=== PATIENT | female | born 1980 | race Caucasian/White ===

== ENCOUNTER 2018-12-17 13:13 | Emergency (ER) | payer MEDICARE, MEDICAID, SELFPAY ==
[2018-12-17 13:15] VITALS: BP 139/86; PULSE 122; RESP 20; TEMP 36.4; O2SAT 96; BMI 39.6
--- NOTE | 2018-12-17 13:28 | DI.RAD.S_ITS ---
PROCEDURE: XR HIP W PEL IF DONE RT 2V INDICATIONS: pain from failing hip surgery TECHNIQUE: AP pelvis with lateral view(s) of the right hip(s). COMPARISON: Outside Film, CR, XR PELVIS WITH LATERAL HIP RIGHT, 09/08/2018, 22:41. Outside Film, CR, XR PELVIS WITH LATERAL HIP RIGHT, 09/12/2018, 22:22. [facility] Outside Film, CT, CT HIP RIGHT WITHOUT CONTRAST, 10/15/2018, 5:07. SNO Outside Film, CR, XR PELVIS WITH LATERAL HIP RIGHT, 09/24/2018, 15:30. SNO Outside Film, CR, XR PELVIS WITH LATERAL HIP RIGHT, 10/08/2018, 13:04. FINDINGS: Bones: There is fracture of the right femoral neck without displacement. There is internal surgical fixation as seen on the prior exams. The alignment is stable. No dislocations. Pelvic ring appears intact. No suspicious bony lesions. Soft tissues: The visualized bowel gas pattern is normal. No suspicious soft tissue calcifications. IMPRESSION: Non-displaced fracture of the right femoral neck with internal fixation. The fracture is most likely subacute or chronic although superimposed acute fracture cannot be excluded. If clinical symptoms persist or clinical suspicion for superimposed acute fracture is high, CT is suggested for further evaluation. Dictated by: Sushma Andersen M.D. on 12/17/2018 at 13:45 Approved by: Sushma Andersen M.D. on 12/17/2018 at 13:52
--- NOTE | 2018-12-17 13:33 | ED_ITS ---
HPI - Extremity Injury (Lower) <Sinai Batista PA-C - Last Filed: 12/17/18 17:20> General Chief Complaint: Extremity Injury, Lower Stated Complaint: Can't move, pain right hip fracture Time Seen by Provider: 12/17/18 13:30 Source: patient Mode of arrival: wheelchair Limitations: no limitations History of Present Illness HPI Narrative: This 38-year-old female had a ground level fall and fractured her right hip 2/. She required transfer to [facility] and fixation was done. She states that this has not healed, and she has been having follow-up x-rays, last 2 weeks ago where apparently there was some movement of the pins. Surgeon at [facility] told her if she has pain with trying to move it is likely that the pins need to come out. She has had worsening pain, states she does okay lying in bed, but hip has gradually become more painful with any movement. She has not been weight-bearing at all. She states that pain was even worse 2 days ago than it is today. She denies any new injury. She states that she has been referred to Dr. Davis for follow-up as she may need a hip replacement, however has not seen her yet. Apparently Dr. Davis has been reviewing her films. Related Data Home Medications Medication Instructions Recorded Confirmed acetaminophen-codeine 1 tab PO Q4H PRN 12/17/18 12/17/18 cyclobenzaprine 5 mg PO TID PRN 12/17/18 12/17/18 dextroamphetamine-amphetamine 20 mg PO TID 12/17/18 12/17/18 diazepam 10 mg PO QID 12/17/18 12/17/18 levothyroxine 88 mcg PO DAILY 12/17/18 12/17/18 naloxone [Narcan] 1 spray INTRANASAL PRN PRN 12/17/18 12/17/18 omeprazole 40 mg PO DAILY 12/17/18 12/17/18 oxycodone-acetaminophen 1 - 2 tab PO Q6H PRN 12/17/18 12/17/18 pregabalin [Lyrica] 150 mg PO TID 12/17/18 12/17/18 promethazine 25 - 50 mg PO Q8H PRN 12/17/18 12/17/18 quetiapine 200 - 400 mg PO BEDTIME 12/17/18 12/17/18 selegiline [Emsam] 1 patch TOPICAL DAILY 12/17/18 12/17/18 sumatriptan succinate 100 mg PO PRN PRN MDD 2 tabs 12/17/18 12/17/18 temazepam 30 mg PO BEDTIME 12/17/18 12/17/18 Allergies Allergy/AdvReac Type Severity Reaction Status Date / Time No Known Drug Allergies Allergy Verified 12/17/18 13:26 Review of Systems <Sinai Batista PA-C - Last Filed: 12/17/18 17:20> Review of Systems ROS Unobtainable: All systems reviewed & are unremarkable except as noted in HPI and below PFSH <Sinai Batista PA-C - Last Filed: 12/17/18 17:20> Medical History (Updated 12/17/18 @ 15:30 by Sinai Batista PA-C) Hypothyroidism (Chronic) Surgical History (Updated 12/17/18 @ 14:02 by Sinai Batista PA-C) Status post fracture of single hip (Resolved) Social History Smoking Status: Never smoker Social History Smoking Status: Never smoker Exam <Sinai Batista PA-C - Last Filed: 12/17/18 17:20> Narrative Exam Narrative: GENERAL APPEARANCE: Patient sitting comfortably, in no distress. LUNGS: Clear to auscultation bilaterally. HEART: Rate and rhythm regular without murmur, normal S1 and S2, no S3 or S4. MUSCULOSKELETAL: No point tenderness to palpation over the right hip, but tender with passive inversion more than eversion, tender with flexion. Range of motion is limited secondary to tenderness. No tenderness over the thigh, no tenderness over the right knee joint. EXTREMITIES: No edema or cyanosis, lower extremity sensation grossly intact Initial Vital Signs Initial Vital Signs: Vital Signs Temperature 97.5 F L 12/17/18 13:15 Pulse Rate 122 H 12/17/18 13:15 Respiratory Rate 20 12/17/18 13:15 Blood Pressure 139/86 12/17/18 13:15 Pulse Oximetry 96 12/17/18 13:15 <Shantel Aguilar DO - Last Filed: 12/18/18 08:30> Initial Vital Signs Initial Vital Signs: Vital Signs Temperature 97.5 F L 12/17/18 13:15 Pulse Rate 122 H 12/17/18 13:15 Respiratory Rate 20 12/17/18 13:15 Blood Pressure 139/86 12/17/18 13:15 Pulse Oximetry 96 12/17/18 13:15 Course <OTIS Geiger Last Filed: 12/17/18 17:20> Additional Information: I have spoken with Dr. Davis's office, and they are waiting for operative notes an additional information before Lucy may be excepted as a patient. She has not been seen there. I spoke with patient's orthopedic surgeon from [facility], Dr. Manjarrez, who reviewed her xrays and advised there is minimal change, no need for urgent transfer today. Patient does have appt with orthopedics at in 3+ weeks and will see if she can get this moved up if unable to see Dr. Davis locally. She will call Dr. Manjarrez's office next week if continuing to have worsening pain and unable to set up follow up. She is agreeable with plan Orders Ordered: Discontinued Medications Oxycodone/Acetaminophen (Percocet 5/325) 2 tab PO NOW ONE Stop: 12/17/18 14:18 Last Admin: 12/17/18 14:26 Dose: 2 tab Vital Signs - 8 hr 12/17/18 13:15 12/17/18 15:41 Temperature 97.5 F L Pulse Rate 122 H 117 H Respiratory Rate 20 20 Blood Pressure 139/86 148/90 H Pulse Oximetry 96 94 <Shantel Aguilar DO - Last Filed: 12/18/18 08:30> Orders Ordered: Discontinued Medications Oxycodone/Acetaminophen (Percocet 5/325) 2 tab PO NOW ONE Stop: 12/17/18 14:18 Last Admin: 12/17/18 14:26 Dose: 2 tab Vital Signs - 8 hr 12/17/18 13:15 12/17/18 15:41 Temperature 97.5 F L Pulse Rate 122 H 117 H Respiratory Rate 20 20 Blood Pressure 139/86 148/90 H Pulse Oximetry 96 94 MDM - Extremity Injury (Lower) <OTIS Geiger Last Filed: 12/17/18 17:20> Imaging Data hip: Radiologist's impression: [address] [address] XRay Report Signed Patient: Lucy Fu JMR#: [id number] : 1980Acct:[id number] Age/Sex: 38 / FDate of Service: 12/17/18 Loc: ED Accession Number: [id number] Procedure: XR hip w pel if done RT 2V Ordering Provider: Shantel Aguilar D.O. PROCEDURE: XR HIP W PEL IF DONE RT 2V INDICATIONS: pain from failing hip surgery TECHNIQUE: AP pelvis with lateral view(s) of the right hip(s). COMPARISON: Outside Film, CR, XR PELVIS WITH LATERAL HIP RIGHT, 09/08/2018, 22:41. Outside Film, CR, XR PELVIS WITH LATERAL HIP RIGHT, 09/12/2018, 22:22. [facility] Outside Film, CT, CT HIP RIGHT WITHOUT CONTRAST, 10/15/2018, 5:07. SNO Outside Film, CR, XR PELVIS WITH LATERAL HIP RIGHT, 09/24/2018, 15:30. SNO Outside Film, CR, XR PELVIS WITH LATERAL HIP RIGHT, 10/08/2018, 13:04. FINDINGS: Bones: There is fracture of the right femoral neck without displacement. There is internal surgical fixation as seen on the prior exams. The alignment is stable. No dislocations. Pelvic ring appears intact. No suspicious bony lesions. Soft tissues: The visualized bowel gas pattern is normal. No suspicious soft tissue calcifications. IMPRESSION: Non-displaced fracture of the right femoral neck with internal fixation. The fracture is most likely subacute or chronic although superimposed acute fracture cannot be excluded. If clinical symptoms persist or clinical suspicion for superimposed acute fracture is high, CT is suggested for further evaluation. Dictated by: Sushma Andersen M.D. on 12/17/2018 at 13:45 Approved by: Sushma Andersen M.D. on 12/17/2018 at 13:52 Discharge Plan Departure Patient Disposition: Home Clinical Impression: Joint pain of right hip on movement Discharge Date/Time: 12/17/18 15:42 Interventions: ED Discharge Assessment Last Done: 12/17/18 15:41 Instructions: DI for Hip Pain Activity Restrictions/Additional Instructions: I have spoken with Dr. Manjarrez who said that your x-rays look minimally worse today, but there are no pins pushing through the bone and he does not think you need any urgent treatment at [facility]. Please continue your current pain medicines. Please call Dr. Davis's office next week and see if she has received the records that they requested and whether you are able to set up an appointment with her. Also, please call tomorrow and let them know you were seen here and have had progressively worsening pain, to see if you can get year Orthopedics appointment moved up there. Please return to the ED or contact [facility] you have any acutely worsening symptoms in the interim. Prescriptions: No Action sumatriptan succinate 100 mg tablet 100 mg PO PRN MDD 2 tabs PRN (Reason: Migraine Headache) RF: 0 acetaminophen-codeine 300-30 mg tablet 1 tab PO Q4H PRN (Reason: pain) RF: 0 omeprazole 40 mg capsule,delayed release(DR/EC) 40 mg PO DAILY RF: 0 oxycodone-acetaminophen 5-325 mg tablet 1 - 2 tab PO Q6H PRN (Reason: pain) RF: 0 levothyroxine 88 mcg tablet 88 mcg PO DAILY RF: 0 temazepam 30 mg capsule 30 mg PO BEDTIME RF: 0 dextroamphetamine-amphetamine 20 mg tablet 20 mg PO TID RF: 0 promethazine 25 mg tablet 25 - 50 mg PO Q8H PRN (Reason: Nausea And Vomiting) RF: 0 diazepam 10 mg tablet 10 mg PO QID RF: 0 cyclobenzaprine 5 mg tablet 5 mg PO TID PRN (Reason: Spasms) RF: 0 Lyrica 150 mg capsule 150 mg PO TID RF: 0 quetiapine 400 mg tablet 200 - 400 mg PO BEDTIME RF: 0 Emsam 9 mg/24 hr patch 24 hour 1 patch topical DAILY RF: 0 Narcan 4 mg/actuation spray,non-aerosol 1 spray Intranasal PRN PRN (Reason: Opioid Overdose) RF: 0 Referrals: [facility] Medicine, Maria Del Rosario Salgado [Other] <Shantel Aguilar, - Last Filed: 12/18/18 08:30> [facility] ED Attending Radhaature Attestation: I was immediately available in the department for consultation. Documentation has been reviewed. I agree with assessment and plan.
--- NOTE | 2018-12-17 13:42 | PC.NURSE ---
States [place] [facility] [place] and pins are moving and my leg hurts. Was told to follow up with local Ortho and will see Dr Davis for this.
[2018-12-17] MEDS: OXYCODONE/ACETAMINOPHEN 5/325 TABLET 2 TAB PO (14:26)
[2018-12-17 15:41] VITALS: BP 148/90; PULSE 117; RESP 20; O2SAT 94
== END 2018-12-17 15:42 | disposition home or self-care (01) ==
PROVIDERS: Emergency Provider Internal Medicine
DX: M25.551 Pain in right hip (principal); Z98.890 Other specified postprocedural states
CPT/HCPCS: 73502; 99282; 99283

== ENCOUNTER 2019-02-03 09:26 | Emergency (ER) | payer MEDICARE, MEDICAID, SELFPAY ==
[2019-02-03] VITALS (8 sets, daily range): BP systolic 130–158; BP diastolic 66–90; PULSE 101–116; RESP 14–21; TEMP 37.3–37.6; O2SAT 96–100; BMI 45.2
--- NOTE | 2019-02-03 09:49 | ED.LOWEXIN ---
HPI - Extremity Injury (Lower) General Chief Complaint: Extremity Injury, Lower Stated Complaint: post surgery,fevers Time Seen by Provider: 02/03/19 09:49 Source: patient Mode of arrival: wheelchair Limitations: no limitations History of Present Illness HPI Narrative: Patient is a 38-year-old presenting with right hip pain. She is postop total hip arthroplasty at [facility]. She says she was released on Friday, 4 days ago. She was walking on it however her pain is gotten worse. She says she has been having fevers some low-grade 09/04/2002 she said she even had a in the hospital. It is now quite painful for her to bear weight. She denies any productive cough no painful or frequent urination. No drainage from the wound. Her surgery was done at the [facility]. complaint: hip injury Related Data Home Medications Medication Instructions Recorded Confirmed acetaminophen-codeine 1 tab PO Q4H PRN 12/17/18 12/17/18 cyclobenzaprine 5 mg PO TID PRN 12/17/18 12/17/18 dextroamphetamine-amphetamine 20 mg PO TID 12/17/18 02/03/19 diazepam 10 mg PO QID 12/17/18 02/03/19 levothyroxine 88 mcg PO DAILY 12/17/18 02/03/19 naloxone [Narcan] 1 spray INTRANASAL PRN PRN 12/17/18 02/03/19 omeprazole 40 mg PO DAILY 12/17/18 12/17/18 oxycodone-acetaminophen 1 - 2 tab PO Q6H PRN 12/17/18 02/03/19 pregabalin [Lyrica] 150 mg PO TID 12/17/18 02/03/19 promethazine 25 - 50 mg PO Q8H PRN 12/17/18 12/17/18 quetiapine 200 - 400 mg PO BEDTIME 12/17/18 02/03/19 selegiline [Emsam] 1 patch TOPICAL DAILY 12/17/18 02/03/19 sumatriptan succinate 100 mg PO PRN PRN MDD 2 tabs 12/17/18 02/03/19 temazepam 30 mg PO BEDTIME 12/17/18 12/17/18 acetaminophen 500 mg PO Q4H PRN 02/03/19 02/03/19 aspirin 162 mg PO DAILY 02/03/19 02/03/19 hydromorphone Q3H 02/03/19 methocarbamol 750 mg PO Q6H 02/03/19 ondansetron 4 mg PO Q6H PRN 02/03/19 02/03/19 Allergies Allergy/AdvReac Type Severity Reaction Status Date / Time No Known Drug Allergies Allergy Verified 12/17/18 13:26 Review of Systems Review of Systems ROS Unobtainable: All systems reviewed & are unremarkable except as noted in HPI and below Constitutional Denies chills and Reports fever(s) Eyes Denies change in vision, Denies eye discharge, Denies irritation and Denies loss of vision ENT Ears, Nose, Mouth, and Throat: Denies change in voice, Denies neck pain and Denies sore throat Cardiovascular Denies chest pain, Denies irregular heart rhythm, Denies lightheadedness, Denies palpitations, Denies dyspnea, Denies dyspnea on exertion and Denies orthopnea Respiratory Denies cough, Denies dyspnea, Denies dyspnea on exertion and Denies wheezing Gastrointestinal Gastrointestinal: Denies abdominal pain, Denies change in bowel habits, Denies diarrhea, Denies nausea and Denies vomiting Genitourinary Denies hematuria, Denies flank pain, Denies urinary incontinence and Denies urinary urgency Musculoskeletal Denies neck pain Integumentary/Breasts Denies pruritus, Denies erythema, Denies rash and Denies wounds Neurologic Denies loss of vision Endocrine Denies palpitations Allergic/Immunologic Denies wheezing PFSH Medical History Hypothyroidism (Chronic) Surgical History History of right hip replacement (Acute) Status post fracture of single hip (Resolved) Social History Smoking Status: Never smoker Social History Smoking Status: Never smoker Exam Initial Vital Signs Initial Vital Signs: Vital Signs Temperature 99.7 F H 02/03/19 09:26 Pulse Rate 108 H 02/03/19 09:26 Respiratory Rate 20 02/03/19 09:26 Blood Pressure 158/90 H 02/03/19 09:26 Pulse Oximetry 99 02/03/19 09:26 GENERAL: Overweight female appears in mild pain HEENT: Head atraumatic,EOMI, pupils reactive, face symmetric, moist mucous membranes CARDIOVASCULAR: Regular rate and rhythm without murmurs, rubs or gallops. RESPIRATORY: Breath sounds equal bilaterally, no wheezes rales or rhonchi. ABDOMEN: Soft, nontender. Normoactive bowel sounds all 4 quadrants. No guarding or rebound. EXTREMITIES: Normal range of motion, no clubbing or edema. Neurovascularly intact She is able to bend her right knee and flex her hip without pain. NEUROLOGICAL: Alert and oriented x4. SKIN: Incision site looks clean and dry bandage still in place no soaking her hand is no erythema of the on the bandage appreciated. Course Orders Ordered: ED Orders 02/03/19 09:56 XR chest 1V Stat 02/03/19 09:57 US periph venous low extrem bi Stat 02/03/19 10:15 C-Reactive Protein Quant Stat Complete Blood Count AUTO DIFF Stat Comprehensive Metabolic Panel Stat Erythrocyte Sedimentation Rate Stat Lactate (Lactic Acid) Stat Procalcitonin Stat 02/03/19 11:07 Blood Culture Stat 02/03/19 11:38 XR hip w pel if done RT 2V Stat Discontinued Medications Hydromorphone HCl (Dilaudid) 1 mg IV NOW ONE Stop: 02/03/19 11:09 Last Admin: 02/03/19 11:10 Dose: 1 mg Hydromorphone HCl (Dilaudid) 1 mg IV NOW ONE Stop: 02/03/19 13:25 Last Admin: 02/03/19 13:34 Dose: 1 mg Sodium Chloride (Normal Saline 0.9%) 1,000 mls @ 200 mls/hr IV CONT MELINDA Last Admin: 02/03/19 10:19 Dose: 200 mls/hr Consultations Consultation #1: Dr. Donaldson, orthopedic surgery has been updated on patient's symptoms and test results. At this time no source of fever. X-ray is within normal limits. He stated that surgery was very complicated and that she was in a wheelchair for 4 months prior to her surgery. Recovery will likely be a long road for her. Probably not a septic joint he S are CRP are elevated likely due to surgery. She is able to move her hip is. Recommend follow up outpatient. Time: 12:16 Vital Signs - 8 hr 02/03/19 10:30 02/03/19 11:00 02/03/19 11:45 Temperature Pulse Rate 105 H 104 H 116 H Respiratory Rate 17 16 16 Blood Pressure Blood Pressure [Left Arm] 158/90 H 147/89 H Pulse Oximetry 96 99 100 02/03/19 12:00 02/03/19 13:00 02/03/19 14:14 Temperature 99.1 F Pulse Rate 107 H 108 H 101 H Respiratory Rate 14 21 21 Blood Pressure 145/79 H Blood Pressure [Left Arm] 133/81 130/66 Pulse Oximetry 98 96 98 MDM - Extremity Injury (Lower) Lab Data Attestation: I reviewed the patient's lab results. Result diagrams: 02/03/19 10:15 02/03/19 10:15 Lab Results 02/03/19 02/03/19 02/03/19 Range/Units 10:15 10:15 10:15 WBC 8.5 (4.5-11.0) X10^3/uL RBC 2.96 L (4.0-5.2) X10^6/uL Hgb 8.5 L (12.0-16.0) g/dL Hct 25.9 L (36-46) % MCV 87.5 (80-100) fL MCH 28.9 (26-34) PG MCHC 33.0 (30-36) % RDW 13.7 (11.6-14.8) % Plt Count 325 (150-400) X10^3/uL Neut % (Auto) 65.5 (50-75) % Lymph % (Auto) 23.6 L (25-40) % [place] % (Auto) 6.3 (3-14) % Eos % (Auto) 4.2 H (2-4) % Baso % (Auto) 0.4 (0-2) % Neut # (Auto) 5600 (5309-8311) /uL Lymph # (Auto) 2000 (0957-6649) /uL [place] # (Auto) 500 (0-900) /uL Eos # (Auto) 400 (0-450) /uL Baso # (Auto) 0 (0-100) /uL ESR (0-20) MM/HR Sodium 141 (137-145) mmol/L Potassium 4.1 (3.4-5.1) mmol/L Chloride 105 (98-107) mmol/L Carbon Dioxide 29 (22-32) mmol/L BUN 15 (7-17) mg/dL Creatinine 0.70 (0.52-1.04) mg/dL Estimated GFR > 60.0 (>60) mL/min BUN/Creatinine Ratio 21.4 (6-22) Glucose 119 H (70-100) mg/dL Lactate (0.7-2.1) mmol/L Calcium 8.7 (8.4-10.2) mg/dL Total Bilirubin 0.3 (0.2-1.3) mg/dL AST 27 (14-36) IU/L ALT 33 (9-52) IU/L Alkaline Phosphatase 65 (38-126) U/L C-Reactive Protein (<1.0) mg/dL Total Protein 5.8 L (6.3-8.2) g/dL Albumin 3.0 L (3.5-5.0) g/dL Globulin 2.8 (1.7-4.1) g/dL Albumin/Globulin Ratio 1.1 (1.0-2.8) Procalcitonin < 0.05 (<0.5) ng/mL 02/03/19 02/03/19 02/03/19 Range/Units 10:15 10:15 10:15 WBC (4.5-11.0) X10^3/uL RBC (4.0-5.2) X10^6/uL Hgb (12.0-16.0) g/dL Hct (36-46) % MCV (80-100) fL MCH (26-34) PG MCHC (30-36) % RDW (11.6-14.8) % Plt Count (150-400) X10^3/uL Neut % (Auto) (50-75) % Lymph % (Auto) (25-40) % [place] % (Auto) (3-14) % Eos % (Auto) (2-4) % Baso % (Auto) (0-2) % Neut # (Auto) (0638-6089) /uL Lymph # (Auto) (1015-5964) /uL [place] # (Auto) (0-900) /uL Eos # (Auto) (0-450) /uL Baso # (Auto) (0-100) /uL ESR > 140 H (0-20) MM/HR Sodium (137-145) mmol/L Potassium (3.4-5.1) mmol/L Chloride (98-107) mmol/L Carbon Dioxide (22-32) mmol/L BUN (7-17) mg/dL Creatinine (0.52-1.04) mg/dL Estimated GFR (>60) mL/min BUN/Creatinine Ratio (6-22) Glucose (70-100) mg/dL Lactate 2.5 H (0.7-2.1) mmol/L Calcium (8.4-10.2) mg/dL Total Bilirubin (0.2-1.3) mg/dL AST (14-36) IU/L ALT (9-52) IU/L Alkaline Phosphatase (38-126) U/L C-Reactive Protein 18.7 H (<1.0) mg/dL Total Protein (6.3-8.2) g/dL Albumin (3.5-5.0) g/dL Globulin (1.7-4.1) g/dL Albumin/Globulin Ratio (1.0-2.8) Procalcitonin (<0.5) ng/mL 02/03/19 Range/Units 12:47 WBC (4.5-11.0) X10^3/uL RBC (4.0-5.2) X10^6/uL Hgb (12.0-16.0) g/dL Hct (36-46) % MCV (80-100) fL MCH (26-34) PG MCHC (30-36) % RDW (11.6-14.8) % Plt Count (150-400) X10^3/uL Neut % (Auto) (50-75) % Lymph % (Auto) (25-40) % [place] % (Auto) (3-14) % Eos % (Auto) (2-4) % Baso % (Auto) (0-2) % Neut # (Auto) (6253-7541) /uL Lymph # (Auto) (7961-1802) /uL [place] # (Auto) (0-900) /uL Eos # (Auto) (0-450) /uL Baso # (Auto) (0-100) /uL ESR (0-20) MM/HR Sodium (137-145) mmol/L Potassium (3.4-5.1) mmol/L Chloride (98-107) mmol/L Carbon Dioxide (22-32) mmol/L BUN (7-17) mg/dL Creatinine (0.52-1.04) mg/dL Estimated GFR (>60) mL/min BUN/Creatinine Ratio (6-22) Glucose (70-100) mg/dL Lactate 0.9 (0.7-2.1) mmol/L Calcium (8.4-10.2) mg/dL Total Bilirubin (0.2-1.3) mg/dL AST (14-36) IU/L ALT (9-52) IU/L Alkaline Phosphatase (38-126) U/L C-Reactive Protein (<1.0) mg/dL Total Protein (6.3-8.2) g/dL Albumin (3.5-5.0) g/dL Globulin (1.7-4.1) g/dL Albumin/Globulin Ratio (1.0-2.8) Procalcitonin (<0.5) ng/mL Point of Care Testing Test Results Negative Urine Dip Bedside Urine Glucose Negative Bedside Urine Bilirubin - Negative Bedside Urine Ketone - Negative Urine Specific [place] 1.015 Bedside Urine Occult Blood - Negative Bedside Urine pH 8.0 Bedside Urine Protein - Negative Bedside Urine Urobilinogen - Negative Bedside Urine Nitrite - Negative Bedside Urine Leukocytes - Negative Esterase Imaging Data Chest x-ray: Radiologist's impression: PROCEDURE: XR CHEST 1V INDICATIONS: post op fever TECHNIQUE: One view of the chest was acquired. COMPARISON: None. FINDINGS: Surgical changes and devices: None. Lungs and pleura: Subtle pulmonary radiopacities are present within the right midlung. The lungs are otherwise clear. No pleural effusion or pneumothorax. Mediastinum: Mediastinal contours appear normal. Heart size is normal. Bones and chest wall: No suspicious bony lesions. Overlying soft tissues appear unremarkable. IMPRESSION: Subtle right midlung pulmonary radiopacities which may be associated with early infection or aspiration. Dictated by: Kelsie Lemus M.D. on 02/03/2019 at 10:48 right hip XR: Radiologist's impression: PROCEDURE: XR HIP W PEL IF DONE RT 2V INDICATIONS: recent surgery TECHNIQUE: 2 view(s) of the hip acquired. COMPARISON: [facility], CR, XR HIP W PEL IF DONE RT 2V, 12/17/2018, 13:29. FINDINGS: Bones: Patient is status post right total hip arthroplasty, with hardware components in expected positions. The hip joint appears congruent. The visualized bony structures appear intact. Soft tissues: Overlying postoperative changes are noted. No suspicious soft tissue densities. IMPRESSION: Normal right total hip arthroplasty positioning, expected postoperative appearance. Dictated by: Carlos Mario M.D. on 02/03/2019 at 12:44 Venous US: Radiologist's impression: PROCEDURE: US PERIPH VENOUS LOW EXTREM BI INDICATIONS: POST OP FEVER TECHNIQUE: Real-time imaging, as well as color and pulse Doppler interrogation, were performed of the deep veins of both legs from the inguinal ligament to the popliteal fossa. COMPARISON: None. FINDINGS: Right: The common femoral, femoral and popliteal veins are normally compressible, and free of intraluminal thrombus. Color and pulse Doppler demonstrate normal phasic intravascular flow. There is normal augmentation response to distal compression maneuver. Left: The common femoral, femoral and popliteal veins are normally compressible, and free of intraluminal thrombus. Color and pulse Doppler demonstrate normal phasic intravascular flow. There is normal augmentation response to distal compression maneuver. IMPRESSION: No evidence of deep vein thrombosis of the bilateral lower extremities. Dictated by: Trever Villa M.D. on 02/03/2019 at 10:06 MDM Narrative Medical decision making narrative: The patient is afebrile in the emergency department. The patient has no source of infection. At this time she is able to flex her hip in the bed without any excruciating pain. I am able to palpate her hip without any excruciating pain there is no significant is erythema at the incision site. At this time I think this is likely postoperative pain no sign of infection. X-ray was questionable for early pneumonia however patient has no cough or shortness of breath. This time I will will not treat. She has no leukocytosis. She was noted to be tachycardic with mild lactic acid of 2.5 however with pain control and 1 L of IV fluids both of these improved. At this time I feel patient is stable and appropriate for outpatient follow-up with her orthopedic surgeon. Discharge Plan Departure Patient Disposition: Home Clinical Impression: Postoperative pain Discharge Date/Time: 02/03/19 14:14 Interventions: ED Discharge Assessment Last Done: 02/03/19 14:14 Instructions: Hip Replacement Activity Restrictions/Additional Instructions: *You have been diagnosed with postoperative hip pain *What to do: At this time there is no sign of infection. Here surgery and courses been quite complicated. Try to increase movement as tolerated. Her pain is going to be very difficult to control. *Continue to take medications as directed *Follow up with your primary care provider in 2-3 days, follow up with Orthopedics next week February [address] Donaldson, or sooner if needed with 1 of his partners *Return to ER if you should have persistent fever increasing pain, or any new, worsening or concerning symptoms Prescriptions: No Action sumatriptan succinate 100 mg tablet 100 mg PO PRN MDD 2 tabs PRN (Reason: Migraine Headache) RF: 0 acetaminophen-codeine 300-30 mg tablet 1 tab PO Q4H PRN (Reason: pain) RF: 0 omeprazole 40 mg capsule,delayed release(DR/EC) 40 mg PO DAILY RF: 0 oxycodone-acetaminophen 5-325 mg tablet 1 - 2 tab PO Q6H PRN (Reason: pain) RF: 0 levothyroxine 88 mcg tablet 88 mcg PO DAILY RF: 0 temazepam 30 mg capsule 30 mg PO BEDTIME RF: 0 dextroamphetamine-amphetamine 20 mg tablet 20 mg PO TID RF: 0 promethazine 25 mg tablet 25 - 50 mg PO Q8H PRN (Reason: Nausea And Vomiting) RF: 0 diazepam 10 mg tablet 10 mg PO QID RF: 0 cyclobenzaprine 5 mg tablet 5 mg PO TID PRN (Reason: Spasms) RF: 0 Lyrica 150 mg capsule 150 mg PO TID RF: 0 quetiapine 400 mg tablet 200 - 400 mg PO BEDTIME RF: 0 Emsam 9 mg/24 hr patch 24 hour 1 patch topical DAILY RF: 0 Narcan 4 mg/actuation spray,non-aerosol 1 spray Intranasal PRN PRN (Reason: Opioid Overdose) RF: 0 aspirin 81 mg tablet,delayed release (DR/EC) 162 mg PO DAILY RF: 0 acetaminophen 500 mg tablet 500 mg PO Q4H PRN (Reason: pain) RF: 0 methocarbamol 750 mg tablet 750 mg PO Q6H RF: 0 hydromorphone 4 mg tablet Q3H RF: 0 ondansetron 4 mg tablet,disintegrating 4 mg PO Q6H PRN (Reason: Nausea) RF: 0
--- NOTE | 2019-02-03 09:56 | DI.RAD.S_ITS ---
PROCEDURE: XR CHEST 1V INDICATIONS: post op fever TECHNIQUE: One view of the chest was acquired. COMPARISON: None. FINDINGS: Surgical changes and devices: None. Lungs and pleura: Subtle pulmonary radiopacities are present within the right midlung. The lungs are otherwise clear. No pleural effusion or pneumothorax. Mediastinum: Mediastinal contours appear normal. Heart size is normal. Bones and chest wall: No suspicious bony lesions. Overlying soft tissues appear unremarkable. IMPRESSION: Subtle right midlung pulmonary radiopacities which may be associated with early infection or aspiration. Dictated by: Kelsie Lemus M.D. on 02/03/2019 at 10:48 Approved by: Kelsie Lemus M.D. on 02/03/2019 at 10:49
--- NOTE | 2019-02-03 09:57 | DI.US.S_ITS ---
PROCEDURE: US PERIPH VENOUS LOW EXTREM BI INDICATIONS: POST OP FEVER TECHNIQUE: Real-time imaging, as well as color and pulse Doppler interrogation, were performed of the deep veins of both legs from the inguinal ligament to the popliteal fossa. COMPARISON: None. FINDINGS: Right: The common femoral, femoral and popliteal veins are normally compressible, and free of intraluminal thrombus. Color and pulse Doppler demonstrate normal phasic intravascular flow. There is normal augmentation response to distal compression maneuver. Left: The common femoral, femoral and popliteal veins are normally compressible, and free of intraluminal thrombus. Color and pulse Doppler demonstrate normal phasic intravascular flow. There is normal augmentation response to distal compression maneuver. IMPRESSION: No evidence of deep vein thrombosis of the bilateral lower extremities. Dictated by: Trever Villa M.D. on 02/03/2019 at 10:06 Approved by: Trever Villa M.D. on 02/03/2019 at 10:10
[2019-02-03] MEDS: SODIUM CHLORIDE 0.9% 1,000 ML 200 ML IV (10:19)
[2019-02-03 10:31] LABS: Add Manual Diff / Slide Review NO; Basophils Absolute Auto 0 /uL (0-100); Basophils Percent Auto 0.4 % (0-2); Eosinophils Absolute Auto 400 /uL (0-450); Eosinophils Percent Auto 4.2 % (2-4); Hematocrit 25.9 % (36-46); Hemoglobin 8.5 g/dL (12.0-16.0); Lymphocytes Absolute Auto 2000 /uL (1100-4500); Lymphocytes Percent Auto 23.6 % (25-40); Mean Corpuscular Hemoglobin 28.9 PG (26-34); Mean Corpuscular Volume 87.5 fL (80-100); Monocytes Absolute Auto 500 /uL (0-900); Monocytes Percent Auto 6.3 % (3-14); Neutrophils Absolute Auto 5600 /uL (1500-7000); Neutrophils Percent Auto 65.5 % (50-75); Platelet Count 325 X10^3/uL (150-400); Red Blood Cell Count 2.96 X10^6/uL (4.0-5.2); Red Cell Distribution Width 13.7 % (11.6-14.8); White Blood Cell Count 8.5 X10^3/uL (4.5-11.0)
[2019-02-03 10:49] LABS: Alanine Aminotransferase 33 IU/L (9-52); Albumin Globulin Ratio 1.1 (1.0-2.8); Alkaline Phosphatase 65 U/L (38-126); Aspartate Aminotransferase 27 IU/L (14-36); BUN Creatinine Ratio 21.4 (6-22); Bilirubin Total 0.3 mg/dL (0.2-1.3); Blood Urea Nitrogen 15 mg/dL (7-17); Calcium 8.7 mg/dL (8.4-10.2); Carbon Dioxide 29 mmol/L (22-32); Chloride 105 mmol/L (98-107); Estimated Glomerular Filt Rate > 60.0 mL/min (>60); Globulin 2.8 g/dL (1.7-4.1); Glucose 119 mg/dL (70-100); HEMOLYSIS < 15 (0-50); Potassium 4.1 mmol/L (3.4-5.1); Sodium 141 mmol/L (137-145); Total Protein 5.8 g/dL (6.3-8.2)
[2019-02-03 10:50] LABS: Lactate (Lactic Acid) 2.5 mmol/L (0.7-2.1)
[2019-02-03 11:03] LABS: C-Reactive Protein Quant 18.7 mg/dL (<1.0)
[2019-02-03] MEDS: HYDROMORPHONE 1 MG INJ IV ×2 (11:10→13:34)
[2019-02-03 11:28] LABS: Procalcitonin < 0.05 ng/mL (<0.5)
[2019-02-03 11:31] LABS: Erythrocyte Sedimentation Rate > 140 MM/HR (0-20)
--- NOTE | 2019-02-03 11:38 | DI.RAD.S_ITS ---
PROCEDURE: XR HIP W PEL IF DONE RT 2V INDICATIONS: recent surgery TECHNIQUE: 2 view(s) of the hip acquired. COMPARISON: [facility], CR, XR HIP W PEL IF DONE RT 2V, 12/17/2018, 13:29. FINDINGS: Bones: Patient is status post right total hip arthroplasty, with hardware components in expected positions. The hip joint appears congruent. The visualized bony structures appear intact. Soft tissues: Overlying postoperative changes are noted. No suspicious soft tissue densities. IMPRESSION: Normal right total hip arthroplasty positioning, expected postoperative appearance. Dictated by: Carlos Mario M.D. on 02/03/2019 at 12:44 Approved by: Carlos Mario M.D. on 02/03/2019 at 12:44
[2019-02-03 12:26] LABS: Reflexed Lactate in 2 Hours Y
--- NOTE | 2019-02-03 12:55 | PC.NURSE ---
for 2nd lactate
[2019-02-03 13:12] LABS: Lactate 2HR (Lactic Acid Rflx) 0.9 mmol/L (0.7-2.1)
== END 2019-02-03 14:14 | disposition home or self-care (01) ==
PROVIDERS: Emergency Provider Emergency Medicine
DX: G89.18 Other acute postprocedural pain (principal)
CPT/HCPCS: 36415; 36591; 71045; 73502; 80053; 81003; 81025; 83605; 84145; 85025; 85651; 86140; 87040; 93970; 96361; 96374; 96376; 99284; 99285; J1170